=== PATIENT | male | born 2000 | race Caucasian/White ===

== ENCOUNTER → 2024-06-30 15:50 | Outpatient (REF) | payer OTHER, SELFPAY | LOC: RAD 15:50 | PROVIDERS: ATTENDING PHYSICIAN Registered Nurse | DX: M25.562 Pain in left knee (principal) | CPT/HCPCS: 73564 ==

== ENCOUNTER 2024-09-07 10:45 | Outpatient (RCR) | payer OTHER, SELFPAY | END 2024-09-07 23:59 | disposition home or self-care (01) | LOC: RPT 10:45 | PROVIDERS: ATTENDING PHYSICIAN Registered Nurse | DX: M25.562 Pain in left knee (principal); Z73.6 Limitation of activities due to disability | CPT/HCPCS: 97110; 97161 ==

== ENCOUNTER 2024-09-19 15:15 | Outpatient (RCR) | payer OTHER, SELFPAY | END 2024-09-19 23:59 | disposition home or self-care (01) | LOC: RPT 15:15 | PROVIDERS: ATTENDING PHYSICIAN Registered Nurse | DX: M25.562 Pain in left knee (principal); Z73.6 Limitation of activities due to disability | CPT/HCPCS: 97010; 97110 ==

== ENCOUNTER 2024-09-29 15:28 | Emergency (ER) | payer OTHER, SELFPAY ==
[2024-09-29 15:33] VITALS: BP 103/70
--- NOTE | 2024-09-29 16:52 | ED.GENMED ---
History of Present Illness
General
Chief Complaint: Musculo-Skeletal Complaint
Time Seen by Provider: 09/29/24 15:45
History of Present Illness
History of Present Illness:
23-year-old male presents for evaluation of right thigh pain that began while attempting to sprint today. He is able to bear weight with discomfort. Has not taken any [id number] meds
Past History
Past History
ED Past Medical History: None
ED Past Surgical History: None
Social History
Tobacco: Non-smoker
Alcohol: None
Drug: Marijuana (Vaping)
Personal: Single
Living: with family
Review of Systems
Review of Systems
Allergies reviewed?: Yes
All Other Systems: ROS reviewed and negative except as documented in HPI and ROS
Phy Exam
Physical Exam
Physical Exam:
GEN: Well appearing, NAD, WDWN
HEENT: Oral mucosa moist, no scleral icterus
Cardiac: Regular rate
Lung: No respiratory distress, no tachypnea
MSK: Diffuse swelling of the right thigh particularly the right hamstring, no ecchymosis, normal range of motion of the right hip and right knee
Skin: Good color, no pallor or jaundice, no rashes
Neuro: AO x3, moves all extremities freely
Psych: Calm, cooperative
Course
Vital Signs
Initial and Last Documented VS:
Initial Vital Signs
Temp Pulse Resp Pulse Ox
98.2 F 63 16 97
09/29/24 15:30 09/29/24 15:30 09/29/24 15:30 09/29/24 15:30
Last Documented Vital Signs
Temp Pulse Resp BP Pulse Ox
98.2 F 63 16 103/70 97
09/29/24 15:30 09/29/24 15:30 09/29/24 15:30 09/29/24 15:33 09/29/24 16:52
MDM/Problems Addressed
MDM/Problems Addressed:
Likely hamstring muscle tear, discussed supportive care and need for orthopedic follow-up
*Pulse Oximetry
SaO2: 97
Patient hypoxic: no
*Critical Care Note
Total Time (30-74mins, 75-104mins- exclusive of procedures): Not Applicable
ED Attending Note
-
Portions of this chart may have been created with voice recognition software.� Occasional wrong word or��sound alike� substitutions may have occurred due to the inherent limitations of voice recognition software.
Discharge Plan
Departure
Patient Disposition: Home (Routine Discharge)
Date of Disposition: 09/29/24
Time of Disposition: 16:52
Patient with high blood pressure during this ER visit?: No
Discharge Problem:
Hamstring tear
Instructions: Hamstring Muscle Strain ED
Prescriptions:
No Action
No Current Medications
0
Referrals:
Arsenio Osuna CRNP [Family Provider, Internal Medicine]
Activity Restrictions/Additional Instructions:
You likely tore hamstring muscle tendon, please ice the area of pain often to reduce swelling and take 600 mg of ibuprofen every 6-8 hours. Limit exertion and heavy lifting particularly on bending at the waist. Follow-up with your orthopedic
specialist to discuss next labs
Interventions
Interventions:
*Risk Screen - Suicide Last Done: 09/29/24 17:21
*General Assessment Last Done: 09/29/24 17:21
*Neglect/Abuse Screening Last Done: 09/29/24 17:21
*ED- Fall Risk Assessment Last Done: 09/29/24 17:21
*Nursing Disposition Last Done: 09/29/24 17:21
ED-Musculoskeletal Assessment Last Done: 09/29/24 17:21
Discharge Date and Time
Discharge Date/Time: 09/29/24 17:22
Print Language: OCCITAN
== END 2024-09-29 17:22 | disposition home or self-care (01) ==
LOC: EMR 15:28
PROVIDERS: EMERGENCY PHYSICIAN Emergency Medicine; FAMILY PHYSICIAN Registered Nurse
DX: S76.311A Strain of muscle, fascia and tendon of the posterior muscle group at thigh level, right thigh, initial encounter (principal); X58.XXXA Exposure to other specified factors, initial encounter; F17.290 Nicotine dependence, other tobacco product, uncomplicated
CPT/HCPCS: 99282

== ENCOUNTER 2024-11-02 18:22 | Outpatient (RCR) | payer OTHER, SELFPAY | END 2024-11-02 23:59 | disposition home or self-care (01) | LOC: RPT 18:22 | PROVIDERS: ATTENDING PHYSICIAN Registered Nurse | DX: M25.562 Pain in left knee (principal); Z73.6 Limitation of activities due to disability; S76.311D Strain of muscle, fascia and tendon of the posterior muscle group at thigh level, right thigh, subsequent encounter | CPT/HCPCS: 97110; 97164 ==

== ENCOUNTER → 2024-11-29 08:22 | Outpatient (REF) | payer OTHER, SELFPAY | LOC: DHSLP 08:22 | PROVIDERS: ATTENDING PHYSICIAN Registered Nurse | DX: G47.30 Sleep apnea, unspecified (principal); G47.8 Other sleep disorders; R06.83 Snoring | CPT/HCPCS: 95800 ==